=== PATIENT | female | born 1960 | race Caucasian/White ===

== ENCOUNTER 2023-06-02 07:55 | Inpatient (IN) | payer OTHER ==
[~2023-06-02] VITALS: Ht 162.6 cm; Wt 86.4 kg
[~2023-06-02 07:55] MED LIST: AMLO-258 PO; ASPI-1450 PO; ATOR10TA PO; BUPIVACAINE HCL/PF 0.5% 30 ML VIAL ONE; ESCI20TA87 PO; LOSA-30 PO; METF-81 PO; RINGERS SOLUTION,LACTATED 1,000 ML IV ONE; SODIUM CHLORIDE 0.9% 100 ML ONE; SODIUM CL IRRIG SOLN BAG 3,000 ML IRRIG ONE; TRANEXAMIC ACID 1,000 MG/10 ML VIAL ONE; VANCOMYCIN HCL 1 GM/VIAL ONE
[2023-06-02] MEDS ORDERED: ETHYL ALCOHOL 62% ANTISEPTIC NASAL SANITIZER 0.6 ML AMPUL NASAL ONE (08:00)
[2023-06-02] MEDS ORDERED: RINGERS SOLUTION,LACTATED 1,000 ML IV ONE ×2 (08:00→10:17)
[2023-06-02] MEDS ORDERED: BUPIVACAINE LIPOSOME/PF 1.3%-13.3MG/ML SUSPENSION 20 ML VIAL INJ ONE (08:15)
[2023-06-02] MEDS ORDERED: MEPERIDINE-PF 25 MG/ML VIAL IVP PRN (09:00)
[2023-06-02] MEDS ORDERED: CYCLOBENZAPRINE HCL 10 MG TABLET PO PRN (09:00)
[2023-06-02] MEDS ORDERED: ONDANSETRON HCL 4 MG/2 ML VIAL IVP PRN ×3 (09:00→12:00)
[2023-06-02] MEDS ORDERED: HYDROmorphone HCL 2 MG/ML SYRINGE IVP PRN ×2 (09:00)
[2023-06-02] MEDS ORDERED: CELECOXIB 200 MG CAPSULE PO ONE (09:00)
[2023-06-02] MEDS ORDERED: OxyCODONE HCL 5 MG IR TABLET PO PRN (09:00)
[2023-06-02] MEDS ORDERED: ZOLPIDEM TARTRATE 5 MG TABLET PO PRN (09:00)
[2023-06-02] MEDS ORDERED: FentaNYL CITRATE PF 100 MCG/2 ML VIAL IVP PRN (09:00)
[2023-06-02 09:01] LABS: GLUCOMETER DEV NAME(LOC) SDS.; GLUCOSE,POINT OF CARE 127 MG/DL (70-110)
[2023-06-02] MEDS ORDERED: CELECOXIB 200 MG CAPSULE ONE (09:05)
[2023-06-02] MEDS ORDERED: ACETAMINOPHEN 1000 MG/ISO-OSM 100 ML IV ONE (09:05)
[2023-06-02] MEDS: ACETAMINOPHEN 1000 MG/ISO-OSM 100 ML IV SCH ×3 (09:07→21:40)
[2023-06-02] MEDS ORDERED: BISACODYL 10 MG RECTAL RECTAL SUPPOSITORY PR PRN (11:30)
[2023-06-02] MEDS ORDERED: BENZOCAINE/MENTHOL LOZENGE PO PRN (11:30)
[2023-06-02] MEDS ORDERED: MAGNESIUM HYDROXIDE SUSPENSION 30 ML UDCUP PO PRN (12:00)
[2023-06-02] MEDS ORDERED: DEXTROSE 50%-WATER 25 GM/50 ML SYRINGE IVP PRN (12:00)
[2023-06-02] MEDS ORDERED: ACETAMINOPHEN 325 MG TABLET PO PRN (12:00)
[2023-06-02 12:50] VITALS: BP 110/65; PULSE 57; RESP 19; TEMP 97.7
[2023-06-02 13:49] VITALS: PULSE 57; RESP 20; O2SAT 96
[2023-06-02] MEDS ORDERED: SODIUM CHLORIDE 0.9% 250 ML IV ONE (14:50)
[2023-06-02] MEDS: CeFAZolin 2 GM/DEXTROSE 50 ML IV SCH (16:12)
[2023-06-02 16:27] VITALS: BP 111/65; PULSE 64; RESP 19; TEMP 98.4
[2023-06-02 16:44] VITALS: BP 111/16; PULSE 64; RESP 19; TEMP 98.4
[2023-06-02 19:45] LABS: APPEARANCE,URINE CLEAR (CLEAR); BILIRUBIN,URINE NEGATIVE (NEGATIVE); COLOR,URINE LIGHT YELLOW (YELLOW); GLUCOSE, URINE (UA) NEGATIVE (NEGATIVE); KETONES,URINE NEGATIVE (NEGATIVE); LEUKOCYTE ESTERASE ,URINE NEGATIVE (NEGATIVE); NITRATE,URINE NEGATIVE (NEGATIVE); OCCULT BLOOD,URINE NEGATIVE (NEGATIVE); PH,URINE 6.5 (5.0-8.0); PROTEIN,URINE NEGATIVE (NEGATIVE); SPECIFIC GRAVITIY, URINE 1.014 (1.003-1.030); UROBILINOGEN,URINE <=1.0 mg/dL (<=1.0)
[2023-06-02 19:53] VITALS: BP 123/61; PULSE 66; RESP 20; TEMP 98.3
[2023-06-02] MEDS ORDERED: OXYGEN THERAPY IH SCH (20:00)
[2023-06-02] MEDS: FAMOTIDINE 20 MG TABLET PO SCH (20:07)
[2023-06-02] MEDS: CELECOXIB 200 MG CAPSULE PO SCH (20:07)
[2023-06-02] MEDS: DOCUSATE SODIUM 100 MG CAPSULE PO SCH (20:07)
[2023-06-02] MEDS ORDERED: DOCUSATE SODIUM 100 MG CAPSULE PO SCH (21:00)
[2023-06-02 21:16] LABS: GLUCOMETER DEV NAME(LOC) 6N.2B; GLUCOSE,POINT OF CARE 116 MG/DL (70-110)
[2023-06-02] MEDS: INSULIN LISPRO 100 UNITS/ML SQ PRN (21:42)
[2023-06-02 23:31] LABS: GLUCOMETER DEV NAME(LOC) 6N.1B; GLUCOSE,POINT OF CARE 164 MG/DL (70-110)
[2023-06-03] MEDS: CeFAZolin 2 GM/DEXTROSE 50 ML IV SCH (01:28)
[2023-06-03] MEDS ORDERED: SODIUM CHLORIDE 0.9% 500 ML IV ONE (02:54)
[2023-06-03 03:04] VITALS: BP 121/71; PULSE 56; RESP 20; TEMP 98
[2023-06-03] MEDS: ACETAMINOPHEN 1000 MG/ISO-OSM 100 ML IV SCH ×2 (03:10→09:11)
[2023-06-03] MEDS: INSULIN LISPRO 100 UNITS/ML SQ PRN (05:53)
[2023-06-03] MEDS ORDERED: PROPOFOL 1% ISO-OSM 1000 MG/100 ML BOTTLE IV ONE (06:47)
[2023-06-03] MEDS ORDERED: FentaNYL CITRATE PF 100 MCG/2 ML VIAL IVP ONE (06:47)
[2023-06-03] MEDS ORDERED: 0.9% SODIUM CHLORIDE 10 ML VIAL IVP ONE (06:47)
[2023-06-03] MEDS ORDERED: MIDAZOLAM HCL 2 MG/2 ML VIAL IVP ONE (06:47)
[2023-06-03] MEDS ORDERED: CeFAZolin SODIUM 1 GM VIAL IVP ONE (06:47)
[2023-06-03 07:22] LABS: BASOPHILS % (AUTO) 0.5 % (0.0-2.0); EOSINOPHILS % (AUTO) 4.2 % (1.0-6.0); HEMATOCRIT 35.5 % (36-46); HEMOGLOBIN 11.9 g/dL (12.0-16.0); LYMPHOCYTES # (AUTO) 2.4 K/uL (1.0-4.8); LYMPHOCYTES % (AUTO) 23.6 % (22.0-44.0); MEAN CORPUSCULAR HEMOGLOBIN 29.2 pg (26.0-34.0); MEAN CORPUSCULAR HGB CONC 33.4 G/dL (31.0-37.0); MEAN CORPUSCULAR VOLUME 88 fL (80-100); MONOCYTES # (AUTO) 0.8 K/uL (0.1-1.0); MONOCYTES % (AUTO) 7.9 % (2.0-9.0); NEUTROPHILS # (AUTO) 6.4 K/uL (1.8-7.7); NEUTROPHILS % (AUTO) 63.8 % (40.0-70.0); PLATELET COUNT (AUTO) 194 K/uL (150-450); RED BLOOD CELL COUNT(AUTO) 4.06 MIL/uL (4.00-5.20); WHITE BLOOD COUNT (AUTO) 10.1 K/uL (4.5-11.0)
[2023-06-03 07:43] LABS: ALANINE AMINOTRANSFERASE 9 U/L (12-78); ALBUMIN 2.9 g/dL (3.4-5.0); ALKALINE PHOSPHATASE 57 U/L (46-116); ANION GAP 7 mmol/L (8-16); ASPARTATE AMINOTRANSFERASE 13 U/L (15-37); BILIRUBIN,TOTAL 0.5 mg/dL (0.1-1.0); CALCIUM, TOTAL 8.1 mg/dL (8.8-10.5); CARBON DIOXIDE 29 mmol/L (22-29); CHLORIDE 103 mmol/L (98-107); CREATININE 0.64 mg/dL (0.60-1.30); GLOMERULAR FILTR. RATE CALC > 60 mL/min (>60); GLUCOSE,RANDOM 130 mg/dL (70-110); POTASSIUM 4.1 mmol/L (3.5-5.1); SODIUM SERUM 139 mmol/L (136-145); TOTAL PROTEIN, SERUM 6.4 g/dL (6.4-8.2); UREA NITROGEN, BLOOD 12 mg/dL (7-18)
[2023-06-03 08:09] VITALS: BP 126/70; PULSE 61; RESP 20; TEMP 98.2
[2023-06-03] MEDS: DOCUSATE SODIUM 100 MG CAPSULE PO SCH (08:23)
[2023-06-03] MEDS: CELECOXIB 200 MG CAPSULE PO SCH (08:24)
[2023-06-03] MEDS: FAMOTIDINE 20 MG TABLET PO SCH (08:24)
[2023-06-03] MEDS ORDERED: ESCITALOPRAM OXALATE 20 MG TABLET PO SCH (09:00)
[2023-06-03] MEDS ORDERED: FAMOTIDINE 20 MG TABLET PO SCH (09:00)
[2023-06-03] MEDS ORDERED: AmLODIPine BESYLATE 10 MG TABLET PO SCH (09:00)
[2023-06-03] MEDS ORDERED: ASPIRIN 81 MG CHEWABLE TABLET PO SCH (09:00)
[2023-06-03] MEDS ORDERED: OxyCODONE HCL/ACETAMINOPHEN 10-325 MG TABLET PO PRN (15:00)
== END 2023-06-03 10:40 | disposition home health service (06) | DRG 470 ==
LOC: 6S 07:55 → 6N 12:48
PROVIDERS: ADMIT Orthopaedic Surgery; ATTEND Internal Medicine
PROC: 0SRC0J9 Replacement of Right Knee Joint with Synthetic Substitute, Cemented, Open Approach (ICD-10-PCS; principal; 2023-06-02 10:00)
DX: M17.11 Unilateral primary osteoarthritis, right knee (principal); E66.9 Obesity, unspecified; E11.9 Type 2 diabetes mellitus without complications; Z96.641 Presence of right artificial hip joint; E78.5 Hyperlipidemia, unspecified; E78.00 Pure hypercholesterolemia, unspecified; I10 Essential (primary) hypertension; Z68.32 Body mass index [BMI] 32.0-32.9, adult; Z83.3 Family history of diabetes mellitus; Z86.73 Personal history of transient ischemic attack (TIA), and cerebral infarction without residual deficits
CPT/HCPCS: 80053; 81003; 82962; 85025; 87081; 97110; 97116; 97162; 97530; C9290; G0238; J0131; J0690; J2250; J2704; J3010; J3370; J3490; J7040; J7050; J7120